=== PATIENT | male | born 1975 | race Caucasian/White ===

== ENCOUNTER 2017-02-28 07:53 | Emergency (ER) | payer BC ==
[2017-02-28 07:53] VITALS: BMI 31.9
--- NOTE | 2017-02-28 08:05 | ED PDOC ---
Arrival/HPI - General Chief Complaint: Lower Extremity Problem/Injury Time Seen by Provider: 02/28/17 07:57 Historian: Patient - History of Present Illness Time/Duration: Other (approximately 3 weeks) Symptom Course: Worsening Quality: Aching, Pressure Severity Level: Moderate Associated Symptoms (Text): 02/28/17 08:03 Patient complains of approximately a 3 week history of left foot pain, more posteriorly. 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 No numbness or tingling. He is able to weight bear. The pain is becoming worse. Past Medical History - Psychiatric Hx Depression: No Hx Emotional Abuse: No Hx Physical Abuse: No Hx Substance Use: No - Suicidal Assessment Feels Threatened In Home Enviroment: No Family/Social History - Physician Review Nursing Documentation Reviewed: Yes Family/Social History: Unknown Family HX Smoking Status: Never Smoked Hx Alcohol Use: No Hx Substance Use: No Allergies/Home Meds Allergies/Adverse Reactions: Allergies No Known Allergies Allergy (Verified 02/28/17 08:01) Review of Systems - Physician Review All systems were reviewed & negative as marked: Yes Physical Exam Vital Signs Temp Pulse Resp BP Pulse Ox 02/28/17 08:23 178/97 H 02/28/17 08:05 98.1 F 92 H 16 98 Temperature: Afebrile Blood Pressure: Normal Pulse: Regular Respiratory Rate: Normal Appearance: Positive for: Well-Appearing, Non-Toxic, Uncomfortable Pain Distress: Mild Mental Status: Positive for: Alert and Oriented X 3 - Systems Exam Lower Extremity: Present: Normal Inspection, NORMAL PULSES, Normal ROM, Tenderness, Neurovascularly Intact, Other (left posterior foot tenderness. No swelling or skin changes. The ankle is normal. Plantar fascia is nontender. He is able to weight-bear. Ibuprofen helps.). No: Edema, CALF TENDERNESS, Cyanosis , Juliane's Sign, Swelling, Erythema, Deformity, Temperature Abnormalties Skin: Present: Warm, Dry, Normal Color. No: Rashes Medical Decision Making - RAD Interpretation Radiology Orders: 02/28/17 08:02 FOOT LEFT 3 VIEWS ROUTINE [RAD] Stat Foot 3 views shows no fracture or dislocation. Osseous bones. 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 Ulcer: No - Disposition Have Diagnosis and Disposition been Completed?: Yes Diagnosis: Foot pain, left Disposition: HOME/ ROUTINE Disposition Time: 08:53 Patient Plan: Discharge Patient Problems: Current Active Problems Problem Status Onset Foot pain, left Acute Condition: GOOD Discharge Instructions (ExitCare): Foot Sprain (ED) Additional Instructions: Rest moist heat and elevation. hypertension check with PMD. Prescriptions: Naproxen [Naprosyn] 500 mg PO BID #14 tab Referrals: Jessie Mae MD [Primary Care Provider] - Follow up with primary Zack Ashley DPM [Staff Provider] - Follow up with primary Forms: [facility] (Senegalese), WORK NOTE
[2017-02-28 08:06] VITALS: PULSE 92; RESP 16; TEMP 98.1; O2SAT 98
[2017-02-28 08:23] VITALS: BP 178/97
--- NOTE | 2017-02-28 11:06 | RAD ---
PROCEDURE: Left Foot Radiographs. HISTORY: pain COMPARISON: None. FINDINGS: BONES: Normal. No fracture. JOINTS: Normal. SOFT TISSUES: Normal. OTHER FINDINGS: None. IMPRESSION: No acute findings related to/accounting for the clinical presentation. Concordant results with the preliminary interpretation rendered by the emergency department physician procedure.
== END 2017-02-28 09:06 | disposition home or self-care (01) ==
LOC: ED 07:53
DX: M79.672 Pain in left foot (principal)

== ENCOUNTER 2017-10-09 12:21 | Emergency (ER) | payer BC, MEDICAID, OTHER ==
[2017-10-09 12:21] VITALS: BMI 31.9
[2017-10-09 13:02] VITALS: RESP 18; TEMP 98.7; O2SAT 99
[2017-10-09] MEDS ORDERED: Oxycodone/Acetaminophen 5/325 mg Tab PO STA (13:10)
--- NOTE | 2017-10-09 13:14 | ED PDOC ---
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 - History of Present Illness Narrative History of Present Illness (Text): 10/09/17 13:11 pt p/w + at work injury sustained 09/23 when a rebar struck his right leg/knee region and knock him to the ground; pt states he has had leg/knee pain since and had been to his at-work healthcare clinic site on multiple occasions, had received an xray and stated it was negative for fracture; due to pt's persistent pain, pt was prescribed an MRI and obtained it 3 days ago but does not know the results; pt states his pain continued and decided to come to Emergency department today for further eval; pt states he was not prescribed any medications; pt had not tried OTC meds?? for pain relief; pt denied fever/ chills/sweats, no cp/sob/palpitations, no abd pain, no n/v, no numbness/tingling , no urinary/bowel changes, no new trauma/fall, pt is here for further eval; pt' s without other complaints pt denied rashes/bleeding/skin color changes PCP: Beryl Mae Past medical history: hypertension/DM Time/Duration: > week (09/23/2017) Symptom Onset: Sudden Symptom Course: Unchanged Quality: Throbbing Severity Level: 10, Severe Activities at Onset: Other (with movement/walking/weight bearing) Context: Walking, Exertion, Home, Work Past Medical History - Provider Review Nursing Documentation Reviewed: Yes - Travel History Have you recently traveled outside [place] w/in the past 3 mons?: No - Past History Past History: No Previous - Infectious Disease Hx of Infectious Diseases: None - Cardiac Hx Cardiac Disorders: Yes Hx Hypertension: Yes - Pulmonary Hx Respiratory Disorders: No - Neurological Hx Neurological Disorder: No - HEENT Hx HEENT Disorder: No - Renal Hx Renal Disorder: No - Endocrine/Metabolic Hx Endocrine Disorders: Yes Hx Diabetes Mellitus Type 2: Yes - Hematological/Oncological Hx Blood Disorders: No - Integumentary Hx Dermatological Disorder: No - Musculoskeletal/Rheumatological Hx Musculoskeletal Disorders: No - Gastrointestinal Hx Gastrointestinal Disorders: No - Genitourinary/Gynecological Hx Genitourinary Disorders: No - Psychiatric Hx Depression: No Hx Emotional Abuse: No Hx Physical Abuse: No Hx Substance Use: No - Anesthesia Hx Anesthesia: Yes Hx Anesthesia Reactions: No Hx Malignant Hyperthermia: No - Suicidal Assessment Feels Threatened In Home Enviroment: No Family/Social History - Physician Review Nursing Documentation Reviewed: Yes Family/Social History: No Known Family HX Smoking Status: Never Smoked Hx Alcohol Use: No Hx Substance Use: No Hx Substance Use Treatment: No Allergies/Home Meds Allergies/Adverse Reactions: Allergies No Known Allergies Allergy (Verified 02/28/17 08:01) Review of Systems - Review of Systems Constitutional: Normal Eyes: Normal ENT: Normal Respiratory: Normal. absent: SOB Cardiovascular: Normal. absent: Chest Pain Gastrointestinal: Normal. absent: Abdominal Pain Genitourinary Male: Normal. absent: Dysuria Musculoskeletal: Other (+ right knee pain) Skin: Normal. absent: Rash Neurological: Normal Endocrine: Normal Hemo/Lymphatic: Normal Psychiatric: Normal Physical Exam - Physical Exam Narrative Physical Exam (Text): 10/09/17 13:14 General: alert/awake, GCS = 15, oriented x 3, resting in bed, uncomfortable, cooperative, interactive; NAD Head: NC/AT EYE: PERRLA, EOMI, sclera anicteric, no nystagmus, no photophobia; visual field intact b/l Facial: WNL Oral: uvula/tongue are midline, no exudate/lesions, no drooling/stridor, no dysphonia NECK: intact ROM, no midline tenderness, no nuchal rigidity, no meningeal signs Chest: CTA b/l, no w/r/r; no tachypenia, no accessory muscle use noted Cardiac: +S1, +S2, no m/r/r Abdominal: +BS, soft/nd/nt, well nourished patient; no masses/rebound/guarding/ rigidity; no carbone's sign, no mcburney's point tenderness ext: intact ROM to rest of the limb except right knee, strength 5/5 grossly intact in all limbs, neurovasc intact b/l; right knee anterior/medial/inferior tenderness, no gross swelling/pitting edema noted, no crepitus noted, decr ROM to right knee due to pain, NO nacho's sign noted b/l, no skin discoloration noted b/l SKIN: cap refill < 1 sec, no ulcerations, no petechiae, no rashes NEURO: CNII-XII WNL, no facial asymmetries, no slurr speech, oriented x 3 NIH stroke scale ~ 0 Psych: normal insight, normal affect Vital Signs Reviewed: Yes Vital Signs Temp Pulse Resp BP Pulse Ox 10/09/17 12:22 98.7 F 94 H 18 168/96 H 99 Temperature: Afebrile Blood Pressure: Hypertensive Pulse: Regular Respiratory Rate: Normal Appearance: Positive for: Well-Appearing, Non-Toxic, Uncomfortable Pain Distress: None Mental Status: Positive for: Alert and Oriented X 3 - Systems Exam Head: Present: Atraumatic, Normocephalic Medical Decision Making ED Course and Treatment: 10/09/17 13:05 Impression: right knee pain i have consider all the differential diagnosis regarding pt's chief medical complaints/clinical findings, including but are not limited to: likely ligamentous/meniscus abnl, unlikely fx; unlikely dislocation A/P: right knee pain - xray - us - labs - supportive care - observe/reevaluation 10/09/17 1545 pt felt improved pt states his pain is improved, currently rated at 5-6/10 vital signs: elevated FS and BP pt is made aware pt is made aware of his medical results pt is encouraged RICE txt pt is encouraged min weight bearing to right leg pt is encouraged keeping right knee immobilized and ambulate with crutches pt will f/u as directed pt will be discharged home Re-evaluation Time: 15:40 Reassessment Condition: Improved - Lab Interpretations Lab Results: 10/09/17 14:00 10/09/17 14:00 Lab Results 10/09/17 14:00: Sodium 143, Potassium 4.1, Chloride 104, Carbon Dioxide 25, Anion Gap 18, BUN 12, Creatinine 0.6 L, Est GFR ( Amer) > 60, Est GFR ( Non-Af Amer) > 60, Random Glucose 340 H*, Calcium 9.3, Total Creatine Kinase 157 10/09/17 14:00: WBC 5.7, RBC 5.36, Hgb 14.6, Hct 41.4 L, MCV 77.2 L, MCH 27.2, MCHC 35.3, RDW 13.9, Plt Count 160, MPV 10.5, Gran % 65.5, Lymph % (Auto) 27.9, [place] % (Auto) 5.5, Eos % (Auto) 0.9 L, Baso % (Auto) 0.2, Gran # 3.71, Lymph # ( Auto) 1.6, [place] # (Auto) 0.3, Eos # (Auto) 0.1, Baso # (Auto) 0.01 I have reviewed the lab results: Yes Interpretation: Abnormal lab values (elevated GLUC) - RAD Interpretation Narrative RAD Interpretations (Text): 10/09/17 16:04 U/S: prelim results - NO DVT PROCEDURE: Right Knee Radiographs. HISTORY: rebar struck pt 5/3, continue pain COMPARISON: None. FINDINGS: BONES: Normal. No fracture. JOINTS: Normal. No osteoarthritis. JOINT EFFUSION: None. OTHER FINDINGS: None. IMPRESSION: Normal radiographs of the right knee. Concordant results with the preliminary interpretation rendered by the emergency department physician\CHARLIE at the conclusion of the procedure. 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 No Sleep Is patient sleeping during reassessment? No Presence of Pain Presence of Pain Yes IM Administration Charges Document 10/09/17 14:00 EQ (Rec: 10/09/17 14:00 [id number]) Charges for Administration # of IM Administrations 1 Oxycodone/Acetaminophen (Percocet 5/325 Mg Tab) 1 tab PO STAT STA Stop: 10/09/17 13:11 Last Admin: 10/09/17 14:00 Dose: 1 tab MAR Pain Assessment Document 10/09/17 14:00 EQ (Rec: 10/09/17 14:00 [id number]) Pain Reassessment Is this a pain reassessment? No Sleep Is patient sleeping during reassessment? No Presence of Pain Presence of Pain Yes Pain Scale Used Pain Scale Used Numeric Disposition/Present on Arrival - Present on Arrival Any Indicators Present on Arrival: No History of DVT/PE: No History of Uncontrolled Diabetes: No Urinary Catheter: No History of Decub. Ulcer: No History Surgical Site Infection Following: None - Disposition Have Diagnosis and Disposition been Completed?: Yes Diagnosis: Knee pain, right, Strain of knee and leg, right, Acute hyperglycemia, Elevated blood pressure reading Disposition: HOME/ ROUTINE Disposition Time: 15:49 Patient Plan: Discharge Patient Problems: Current Active Problems Problem Status Onset Acute hyperglycemia Acute Knee pain, right Acute Strain of knee and leg, right Acute Condition: STABLE Discharge Instructions (ExitCare): Hyperglycemia, Adult, Lower Extremity Muscle Strain (DC), Blood Glucose Monitoring, Knee Sprain (DC), Contusion (DC), Hypotension (ED), Hypertension (ED) Print Language: GEORGIAN Additional Instructions: Make sure to see your doctor in 1-2 days DRINK PLENTY OF FLUIDS AVOID weight bearing to right leg use cutches for ambulation elevate your right leg when you are at rest ice your right knee 15min/hr over the next 1-2 days keep your knee in immobilizer take your medications as prescribed RETURN TO ED IF worse pain, cant breath, persistent vomiting, high fever >101- 102 for hours, altered behavior, slurr speech, facial changes, focal weakness ( arm/leg or both), unable to urinate, heavy/persistent bleeding, passing out, chest pain, or other medical emergencies Prescriptions: Ibuprofen [Motrin] 400 mg PO QID PRN #30 tab PRN Reason: Pain, Mild (1-3) oxyCODONE/Acetaminophen [Percocet 5/325 mg Tab] 1 tab PO QID PRN #10 tab PRN Reason: Pain, Moderate (4-7) Referrals: Poncho Coppola MD [Staff Provider] - Follow up with primary Abhay oPnce DO [Staff Provider] - Follow up with primary Forms: [email or web address] [facility] (Northern Irish), WORK NOTE
[2017-10-09 14:08] LABS: BASO # 0.01 K/mm3 (0.0-2.0); BASO % 0.2 % (0.0-3.0); EOS # 0.1 (0.0-0.7); EOS % 0.9 % (1.5-5.0); GRAN # 3.71 (1.4-6.5); GRAN % 65.5 % (50.0-68.0); HEMOGLOBIN 14.6 g/dL (14.0-18.0); LYMPH # 1.6 (1.2-3.4); LYMPH % 27.9 % (22.0-35.0); MEAN CELL VOLUME 77.2 fl (80.0-105.0); MEAN CORPUSCULAR HEMOGLOBIN 27.2 pg (25.0-35.0); MEAN CORPUSCULAR HGB CONC 35.3 g/dl (31.0-37.0); MEAN PLATELET VOLUME 10.5 fl (7.0-11.0); MONO # 0.3 (0.1-0.6); MONO % 5.5 % (1.0-6.0); RBC 5.36 10^6/uL (3.5-6.1); RED CELL DISTRIBUTION WIDTH 13.9 % (11.5-14.5); WHITE BLOOD COUNT 5.7 10^3/ul (4.5-11.0)
[2017-10-09 14:17] LABS: BLOOD UREA NITROGEN 12 mg/dL (7-21); CALCIUM 9.3 mg/dL (8.4-10.5); GFR AFRICAN-AMERICAN > 60; GFR NON-AFRICAN AMERICAN > 60
[2017-10-09] MEDS ORDERED: Insulin Regular 1 UNITS/0.01 ML ML SC ONE (15:48)
--- NOTE | 2017-10-09 15:58 | RAD ---
PROCEDURE: Right Knee Radiographs. HISTORY: rebar struck pt 5/3, continue pain COMPARISON: None. FINDINGS: BONES: Normal. No fracture. JOINTS: Normal. No osteoarthritis. JOINT EFFUSION: None. OTHER FINDINGS: None. IMPRESSION: Normal radiographs of the right knee. Concordant results with the preliminary interpretation rendered by the emergency department physician procedure.
[2017-10-09 16:09] VITALS: BP 170/96; PULSE 84
--- NOTE | 2017-10-10 19:16 | US ---
PROCEDURE: Right lower extremity venous US HISTORY: Leg pain and swelling. Evaluate for DVT. PHYSICIAN(S): Alhaji Grissom M.D. TECHNIQUE: Duplex sonography and color-flow Doppler with graded compression were used to evaluate the deep venous system of the right lower extremity. FINDINGS: The visualized deep venous system of the right lower extremity is sonographically normal and compressible. Normal waveforms and augmentation are seen. There is no sonographic evidence for deep venous thrombosis in the visualized segments of the right lower extremity. IMPRESSION: 1. No sonographic evidence for deep venous thrombosis in the visualized segments of the right lower extremity.
== END 2017-10-09 16:36 | disposition home or self-care (01) ==
LOC: ED 12:21
DX: S86.911D Strain of unspecified muscle(s) and tendon(s) at lower leg level, right leg, subsequent encounter (principal); W18.09XD Striking against other object with subsequent fall, subsequent encounter; M25.561 Pain in right knee; E11.65 Type 2 diabetes mellitus with hyperglycemia; I10 Essential (primary) hypertension
CPT/HCPCS: 73560; 80048; 82550; 85025; 93971; 96372; 99284; J1885